=== PATIENT | male | born 2000 | race Caucasian/White ===

== ENCOUNTER → 2023-11-11 10:50 | Outpatient (REF) | payer OTHER, SELFPAY | LOC: HWRAD 10:50 | PROVIDERS: ATTENDING PHYSICIAN Internal Medicine Gastroenterology; FAMILY PHYSICIAN Physician Assistant | DX: R93.2 Abnormal findings on diagnostic imaging of liver and biliary tract (principal); K76.6 Portal hypertension | CPT/HCPCS: 76700 ==

== ENCOUNTER 2024-07-05 17:28 | Emergency (ER) | payer SELFPAY ==
[2024-07-05 17:41] VITALS: BP 135/93
--- NOTE | 2024-07-05 18:50 | ED.GENMED ---
History of Present Illness
General
Chief Complaint: Skin Surface Trauma
Source: patient
Exam Limitations: none
Time Seen by Provider: 07/05/24 18:12
Nursing documentation reviewed up to this point in time: agreed with
History of Present Illness
History of Present Illness:
23y /o M
right hand dominant
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
no numbness/tingling/weakness
bleeding controlled but pt hs h/o thrombocytopenia, plt 60K
Past History
Past History
ED Past Medical History: Other (thrombocyopenia)
Social History
Tobacco: Non-smoker
Alcohol: None
Drug: None
Review of Systems
Review of Systems
Allergies reviewed?: Yes
All Other Systems: Not applicable
Phy Exam
Physical Exam
Physical Exam:
GENERAL: Alert , in no apparent distress, comfortable at rest
HEAD: NCAT
CV: 2+ radial pulse
cp refill intact
NEUROLOGICAL: Alert and oriented, no focal neuro deficits, , 5/5 strength, sensation intact, ambulation slight limp right leg
SKIN: Warm and dry, 4 cm linear laceration L palm laceration
bleeding controlled
MUSCULOSKELETAL: left hand palm laceration
full painless ROM of the fingers
normal nv exam
PSYCH: Normal and appropriate interaction.
Course
Orders/Labs/Results
Orders:
Orders
07/05/24 18:50
Tetanus/Diphth/Acelpertussis [Adacel] 0.5 ml IM .ONCE ONE
Vital Signs
Initial and Last Documented VS:
Initial Vital Signs
Temp Pulse Resp BP Pulse Ox
36.6 C 76 20 135/93 97
07/05/24 17:41 07/05/24 17:41 07/05/24 17:41 07/05/24 17:41 07/05/24 17:41
Last Documented Vital Signs
Temp Pulse Resp BP Pulse Ox
36.6 C 76 20 135/93 97
07/05/24 17:41 07/05/24 17:41 07/05/24 17:41 07/05/24 17:41 07/05/24 17:41
Procedures
Laceration Closure
Left Medial Palmar Hand:
Status of Wound: clean
Size of Wound in cm: 4
Description of Wound Edges: sharp and flap-well vascularized
Preparation: cleaned with saline
Anesthesia: 1% Lidocaine with epi
Revision/Debridement: routine- no revision
Wound exploration: explored to base- no FB and no tendon involvement
Type of Closure: single layer closure
Skin Closure Material: 5-0 nylon
Number of sutures: 5
MDM/Problems Addressed
Differential Diagnosis Includes:
hand laceratin, thrombocytopenia
MDM/Problems Addressed:
23 y/o M
laceration to L palm today at work
h/o thrombocytopennia
60k
no recent bleeding issues
n/v intact
linear lac
closed with sutures
bleeding controlled
d/c home
*Critical Care Note
Total Time (30-74mins, 75-104mins- exclusive of procedures): Not Applicable
ED Attending Note
-
Portions of this chart may have been created with voice recognition software.� Occasional wrong word or��sound alike� substitutions may have occurred due to the inherent limitations of voice recognition software.
Discharge Plan
Departure
Patient Disposition: Home (Routine Discharge)
Date of Disposition: 07/05/24
Time of Disposition: 18:55
Patient with high blood pressure during this ER visit?: No
Covid-19: Not Applicable
Discharge Problem:
Laceration of hand, left
Instructions: Laceration Repair With Stitches (DC)
Prescriptions:
No Action
ranitidine HCl [Zantac 75] 75 MG tablet
75 mg PO BID
ondansetron 4 MG tablet,disintegrating
4 mg PO TIDPRN PRN (Reason: nausea) Qty: 20 0RF
Referrals:
Travis Collins MD [Family Provider] -
Stand Alone Forms: Return to Work
Activity Restrictions/Additional Instructions:
KEEP THE WOUND CLEAN AND DRY FOR 24 HOURS
AFTER THAT YOU CAN GET IT WET IN THE BATH/SHOWER ONCE A DAY AND MAKE SURE IT IS CLEAN AND THERE IS NO DRIED BLOOD ON THE STITCHES
APPLY NEOSPORIN AND A BANDAID
THE STITCHES NEED TO BE REMOVED IN ABOUT 7-10 DAYS, SEE YOUR DOCTOR FOR THIS.
THE LAST DAY BEFORE STITCHES OUT, NO OINTMENT, LEAVE OPEN TO AIR
WATCH FOR SIGNS OF INFECTION AND RETURN NEEDED FOR PAIN, SWELLING, REDNESS, DRAINAGE, BLEEDING.
tylenol NEEDED FOR PAIN.
Interventions
Interventions:
*Risk Screen - Suicide Last Done: 07/05/24 17:41
*General Assessment Last Done: 07/05/24 17:41
*Neglect/Abuse Screening Last Done: 07/05/24 17:41
*ED COVID-19 Vaccine History Last Done: 07/05/24 18:17
ED-Skin Assessment Last Done: 07/05/24 18:17
Discharge Date and Time
Print Language: [email or web address]
[2024-07-05] MEDS: ADACEL 0.5 ML IM (18:54)
[2024-07-05 19:18] VITALS: BP 130/90
== END 2024-07-05 19:19 | disposition home or self-care (01) ==
LOC: EMR 17:28
PROVIDERS: EMERGENCY PHYSICIAN Student in an Organized Health Care Education/Training Program
DX: S61.412A Laceration without foreign body of left hand, initial encounter (principal); W26.0XXA Contact with knife, initial encounter; Y99.0 Civilian activity done for income or pay; Z23 Encounter for immunization
CPT/HCPCS: 99282; 12002; 90471; 90715

== ENCOUNTER → 2024-09-20 09:51 | Outpatient (REF) | payer OTHER, SELFPAY | LOC: HWRAD 09:51 | PROVIDERS: ATTENDING PHYSICIAN Internal Medicine Gastroenterology; FAMILY PHYSICIAN Physician Assistant | DX: K74.60 Unspecified cirrhosis of liver (principal) | CPT/HCPCS: 76700 ==